=== PATIENT | male | born 2000 | race African-American/Black ===

== ENCOUNTER 2020-05-01 00:02 | Emergency (ER) | payer OTHER ==
[~2020-05-01] VITALS: Ht 165.1 cm; Wt 85.0 kg
--- NOTE | 2020-05-01 01:05 | PHYS DOC ---
General Adult EDM: Chief Complaint: DIZZY/LIGHT HEADED HPI: HPI: " I started feeling bad. 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 No recent travel. No specific ill contacts. Up-to-date with vaccinations. No history immunosuppression. No history of bad food intake. Review of Systems: Review of Systems: Constitutional: Denies fever or chills Eyes: Denies change in visual acuity HENT: Complains of bleeding left nasal, nasal congestion . Respiratory: Denies cough or shortness of breath Cardiovascular: Denies chest pain or edema GI: History of generalized abdominal pain, nausea, vomiting,. Denies bloody stools. Complains of diarrhea : Denies dysuria Musculoskeletal: Complaints of generalized myalgia and arthralgia Integument: Denies rash Neurologic: Denies headache, focal weakness or sensory changes Endocrine: Denies polyuria or polydipsia Lymphatic: Denies swollen glands Psychiatric: Denies depression or anxiety Family History: Family History: Noncontributory to presentation Current Medications: Current Meds: See nursing for home meds Allergies: Allergies: No known drug allergies Physical Exam: PE: Constitutional: Well developed, well nourished, no acute distress, non-toxic appearance. [] HENT: Normocephalic, atraumatic, bilateral external ears normal, oropharynx moist, no oral exudates, nose no septal hematoma. Has some dried blood in the area of [place]. Eyes: PERRLA, EOMI, conjunctiva normal, no discharge. [] Neck: Normal range of motion, no tenderness, supple, no stridor. [] Cardiovascular: Bradycardia heart rate regular rhythm, no murmur [] Lungs & Thorax: Bilateral breath sounds "apex auscultation [] Abdomen: Bowel sounds hyperactive,, soft, no tenderness, no masses, no pulsatile masses. [] Skin: Warm, dry, no erythema, no rash. [] Back: No tenderness, no CVA tenderness. [] Extremities: No tenderness, no cyanosis, no clubbing, ROM intact, no edema. [] Neurologic: Alert and oriented X 3, normal motor function, normal sensory function, no focal deficits noted. [] Psychologic: Affect anxious, judgement normal, mood normal. [] EKG: EKG: My interpretation EKG shows a sinus bradycardia at 60 bpm no acute morphology [] Radiology/Procedures: Radiology/Procedures: [][address] [address] IMAGING REPORT Signed PATIENT: FORTINO ASHBY ACCOUNT: [id number] : 2000 LOCATION: ER AGE: 19 SEX: M EXAM STATUS: REG ER ORD. PHYSICIAN: WHITNEY MEDINA MD REASON: nausea vomiting pain PROCEDURE: ACUTE ABDOMEN SERIES EXAM: XR ABDOMEN COMP ACUTE 05/01/2020 1:47 AM CLINICAL INDICATION: Nausea, vomiting, pain COMPARISON: None TECHNIQUE: AP and supine views of the abdomen and PA view of the chest FINDINGS: Bowel gas pattern is nonspecific and nonobstructive. Normal volume of stool. No abnormal calcifications. The heart and mediastinum are normal. Lungs are well-expanded and clear. No pleural effusion or pneumothorax. No acute osseous abnormality. IMPRESSION: Normal abdominal series radiograph. Electronically signed by: Stacey Louis MD (05/01/2020 2:57 AM) [id number] DICTATED AND SIGNED BY: STACEY LOUIS MD DATE: 05/01/20 0255 CC: WHITNEY MEDINA MD; PCP,UNKNOWN ~MTH0 0 Heart Score: HEART Score for Chest Pain: HEART Score for Chest Pain Response (Comments) Value History Slighlty/Non-Suspicious 0 ECG Normal 0 Age < 45 0 Risk Factors No Risk Factors 0 Troponin < Normal Limit 0 Total 0 Risk Factors: Risk Factors: DM, Current or recent (<one month) smoker, HTN, HLP, family history of CAD, obesity. Risk Scores: Score 0 - 3: 2.5% MACE over next 6 weeks - Discharge Home Score 4 - 6: 20.3% MACE over next 6 weeks - Admit for Clinical Observation Score 7 - 10: 72.7% MACE over next 6 weeks - Early Invasive Strategies Course & Med Decision Making: Course & Med Decision Making Pertinent Labs and Imaging studies reviewed. (See chart for details) Patient to take Tylenol and ibuprofen for pain or fever. For active nausea vomiting take Zofran 8 mg up to 4 times a day. Follow-up primary care. Clear fluid diet. Follow-up Covid testing. Self isolate wear a mask that covers nose and mouth at all times when away from home. Return if any concerns. Impression: `1. Viral Syndrome [] Dragon Disclaimer: Dragon Disclaimer: This electronic medical record was generated, in whole or in part, using a voice recognition dictation system. Departure Departure: Referrals: PCP,UNKNOWN (PCP) Scripts Ondansetron Hcl (ZOFRAN) 4 Mg Tablet 2 TAB PO Q6HRS for nausea and vomiting, #30 TAB Prov: WHITNEY MEDINA MD 05/01/20 Dragon Disclaimer This chart was dictated in whole or in part using Voice Recognition software in a busy, high-work load, and often noisy Emergency Department environment. It may contain unintended and wholly unrecognized errors or omissions. Dragon Disclaimer This chart was dictated in whole or in part using Voice Recognition software in a busy, high-work load, and often noisy Emergency Department environment. It may contain unintended and wholly unrecognized errors or omissions. WHITNEY MEDINA MD May 01, 2020 01:05
[2020-05-01] MEDS ORDERED: oxyCODONE/APAP 5/325 1 TAB TABLET PO ONE (01:45)
[2020-05-01] MEDS ORDERED: IV RINGERS SOLUTION,LACTATED 1,000 ML IV SCH (01:45)
[2020-05-01] MEDS ORDERED: ONDANSETRON PF 4 MG/2 ML VIAL. IVP ONE (01:45)
--- NOTE | 2020-05-01 01:46 | EKG ---
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
[2020-05-01 02:58] LABS: CALCIUM 8.7 mg/dL (8.5-10.1); CREATININE 0.8 mg/dL (0.7-1.3); GFR 150.7; POTASSIUM 3.6 mmol/L (3.5-5.1)
--- NOTE | 2020-05-01 02:59 | RAD ---
EXAM: XR ABDOMEN COMP ACUTE 05/01/2020 1:47 AM CLINICAL INDICATION: Nausea, vomiting, pain COMPARISON: None TECHNIQUE: AP and supine views of the abdomen and PA view of the chest FINDINGS: Bowel gas pattern is nonspecific and nonobstructive. Normal volume of stool. No abnormal c alcifications. The heart and mediastinum are normal. Lungs are well-expanded and clear. No pleural ef fusion or pneumothorax. No acute osseous abnormality. IMPRESSION: Normal abdominal series radiograph. Electronically signed by: Stacey Louis MD (05/01/2020 2:57 AM) [id number]
[2020-05-01 03:00] VITALS: BP 136/85
[2020-05-01 03:03] LABS: INFLUENZA A PATIENT NEGATIVE (NEGATIVE); INFLUENZA B PATIENT NEGATIVE (NEGATIVE)
[2020-05-01 03:03] LABS: ALBUMIN 3.8 g/dL (3.4-5.0); DIRECT BILIRUBIN 0.1 mg/dL (0.0-0.2); MAGNESIUM 1.9 mg/dL (1.8-2.4); TOTAL BILIRUBIN 0.2 mg/dL (0.2-1.0); TOTAL PROTEIN 7.2 g/dL (6.4-8.2)
[2020-05-01 03:23] LABS: BASO % 1 % (0-3); EOS # 0.2 x10^3/uL (0.0-0.7); EOS % 2 % (0-3); HEMATOCRIT 42.4 % (39.0-53.0); HEMOGLOBIN 14.1 g/dL (13.0-17.5); LYMPH # 2.4 x10^3/uL (1.0-4.8); LYMPH % 26 % (24-48); MEAN CORPUSCULAR HEMOGLOBIN 29 pg (25-35); MEAN CORPUSCULAR HGB CONC 33 g/dL (31-37); MEAN CORPUSCULAR VOLUME 87 fL (79-100); MONO # 0.6 x10^3/uL (0.0-1.1); MONO % 6 % (0-9); NEUT # 5.9 x10^3uL (1.8-7.7); NEUT % 65 % (31-73); PLATELET COUNT 256 x10^3/uL (140-400); RED BLOOD COUNT 4.86 x10^6/uL (4.30-5.70); RED CELL DISTRIBUTION WIDTH 12.8 % (11.5-14.5); WHITE BLOOD COUNT 9.1 x10^3/uL (4.0-11.0)
[2020-05-01] MEDS ORDERED: ONDA4TAB7 PO (03:54)
--- NOTE | 2020-05-03 09:41 | NUR ---
IP: patient notified of COVID result.
== END 2020-05-01 04:25 | disposition home or self-care (01) ==
LOC: ER 00:02
DX: B34.9 Viral infection, unspecified (principal); Z20.822 Contact with and (suspected) exposure to COVID-19; R04.0 Epistaxis
CPT/HCPCS: 36415; 74022; 80048; 80076; 82550; 83690; 83735; 84443; 84484; 85025; 85610; 85730; 86705; 86709; 86803; 87340; 87804; 93005; 96361; 96374; 99285; C9803; J2405; J7120; U0003

== ENCOUNTER 2020-07-07 02:08 | Emergency (ER) | payer OTHER ==
[~2020-07-07] VITALS: Ht 165.1 cm; Wt 90.0 kg
[~2020-07-07 02:08] MED LIST: ONDA4TAB7 PO
--- NOTE | 2020-07-07 02:40 | PHYS DOC ---
Past History Past Medical History: Asthma, Depression Past Surgical History: Other Additional Past Surgical Histo: Left shoulder rotator cuff surgery Alcohol Use: Rarely General Adult EDM: Chief Complaint: ABDOMINAL PAIN HPI: HPI: Patient is a 19-year old male coming in for right-sided abdominal pain that started earlier today. Patient states he had a wisdom tooth extraction 5 days prior. Today went in to have 1 on the right side packed because of a developing dry socket. Patient states afterwards he started having sharp right lower quadrant abdominal pain. Patient states the pain is worse with laying supine or leaning forward. Denies any changes in urination, blood in his urine, testicular pain. Has not had any nausea but has made himself vomit without improvement of the pain. Had a normal bowel movement earlier today as well. Patient has had decreased appetite. Last p.o. intake was fluid about 2 hours prior to arrival. Last solid p.o. intake about 12 hours prior to arrival. Past surgical history wisdom tooth extraction and left AC repair Review of Systems: Review of Systems: All other systems within normal limits except for as noted in the HPI Current Medications: Current Meds: Current Medications Medications (Trade) Dose Ordered Sig/Елена Start Time Stop Time Status Last Admin Dose Admin Fentanyl Citrate (Fentanyl 2ml Vial) 75 mcg 1X ONCE 07/07/20 03:00 07/07/20 03:01 Ondansetron HCl (Zofran) 4 mg 1X ONCE 07/07/20 03:00 07/07/20 03:01 Sodium Chloride 1,000 ml @ 1,000 mls/hr 1X ONCE 07/07/20 03:00 07/07/20 03:59 Allergies: Allergies: Allergies Coded Allergies Type Severity Reaction Last Updated Verified No Known Drug Allergies 05/01/20 No Physical Exam: PE: Constitutional: Well developed, well nourished, no acute distress, non-toxic appearance. [] HENT: Normocephalic, atraumatic, bilateral external ears normal, nose normal. [] Eyes: PERRLA, conjunctiva normal, no discharge. [] Neck: No rigidity, supple, no stridor. [] Cardiovascular: Regular rate and rhythm, brisk cap refill [] Lungs & Thorax: Non labored symmetric respirations, no tachypnea or respiratory distress [] Abdomen: Soft, nondistended, voluntary guarding, pain on right upper and lower abdomen. Positive Rovsing sign, no rebound.. Skin: Warm, dry, no erythema, no rash. [] Back: Unremarkable Extremities: No deformities, range of motion grossly intact, no lower extremity edema [] Neurologic: Alert and oriented X 3, no focal deficits noted. [] Psychologic: Affect normal, judgement normal, mood normal. [] EKG: EKG: [] Radiology/Procedures: Radiology/Procedures: CT ABDOMEN+PELVIS W Clinical Indication: Reason: RLQ pain Comparison: None. Technique: Helical CT imaging of the abdomen and pelvis is performed after 75 cc of Omnipaque 300 IV contrast. Oral contrast not administered. Findings: The lung bases are clear. Cardiac size normal. The liver, gallbladder, spleen, pancreas, adrenal glands, abdominal aorta, and kidneys are normal. The stomach is unremarkable. There is no dilated small bowel. The appendix is normal. There is no colon wall thickening. The sigmoid colon is decompressed. No abdominal adenopathy or free fluid. Urinary bladder is normal. There is trace pelvic free fluid, abnormal. The prostate and seminal vesicles are normal. No acute bone abnormality. IMPRESSION: 1. The appendix is normal. 2. Trace pelvic free fluid, abnormal. [] Heart Score: C/O Chest Pain: No Risk Factors: Risk Factors: DM, Current or recent (<one month) smoker, HTN, HLP, family history of CAD, obesity. Risk Scores: Score 0 - 3: 2.5% MACE over next 6 weeks - Discharge Home Score 4 - 6: 20.3% MACE over next 6 weeks - Admit for Clinical Observation Score 7 - 10: 72.7% MACE over next 6 weeks - Early Invasive Strategies Course & Med Decision Making: Course & Med Decision Making Pertinent Labs and Imaging studies reviewed. (See chart for details) Discussed possible early appendicitis and return precautions. Also discussed that patient has a moderate stool burden in the ascending colon that might be causing some discomfort. Discussed treatment of constipation and discussed using stool softener while taking opioid pain medications for his wisdom teeth extraction. Trace free fluid clinically insignificant, in the setting of no abdominal trauma. [] Dragon Disclaimer: Dragon Disclaimer: This electronic medical record was generated, in whole or in part, using a voice recognition dictation system. Departure Departure: Impression: Primary Impression: Abdominal pain Disposition: 01 DC HOME SELF CARE/HOMELESS Condition: STABLE Referrals: PCP,UNKNOWN (PCP) Patient Instructions: Abdominal Pain, Possible Early Appendicitis Additional Instructions: Alleviate constipation by taking [id number] magnesium citrate. Take a stool softener any time taking opioid pain medications to prevent OLIVEROSHERMAN DICKERSON MD Jul 07, 2020 02:40
[2020-07-07] MEDS ORDERED: CONTRAST GIVEN. MC PRN (02:45)
[2020-07-07 02:55] LABS: BASO # 0.1 x10^3/uL (0.0-0.2); BASO % 1 % (0-3); EOS # 0.3 x10^3/uL (0.0-0.7); EOS % 3 % (0-3); HEMATOCRIT 49.1 % (39.0-53.0); HEMOGLOBIN 16.6 g/dL (13.0-17.5); LYMPH % 24 % (24-48); MEAN CORPUSCULAR HEMOGLOBIN 29 pg (25-35); MEAN CORPUSCULAR HGB CONC 34 g/dL (31-37); MEAN CORPUSCULAR VOLUME 87 fL (79-100); MONO # 0.6 x10^3/uL (0.0-1.1); MONO % 7 % (0-9); NEUT # 5.5 x10^3uL (1.8-7.7); NEUT % 66 % (31-73); PLATELET COUNT 336 x10^3/uL (140-400); RED BLOOD COUNT 5.66 x10^6/uL (4.30-5.70); WHITE BLOOD COUNT 8.4 x10^3/uL (4.0-11.0)
[2020-07-07] MEDS ORDERED: IOHEXOL 300 MG/ML 75 ML VIAL. IV ONE (03:00)
[2020-07-07] MEDS ORDERED: ONDANSETRON PF 4 MG/2 ML VIAL. IVP ONE (03:00)
[2020-07-07] MEDS ORDERED: IV NORMAL SALINE 1,000ML 1,000 ML IV ONE (03:00)
[2020-07-07 03:03] LABS: CALCIUM 9.5 mg/dL (8.5-10.1); CREATININE 0.9 mg/dL (0.7-1.3); GFR 131.5; POTASSIUM 4.3 mmol/L (3.5-5.1)
[2020-07-07 03:08] LABS: ALBUMIN 4.4 g/dL (3.4-5.0); ALBUMIN/GLOBULIN RATIO 1.1 (1.0-1.7); TOTAL BILIRUBIN 0.4 mg/dL (0.2-1.0); TOTAL PROTEIN 8.5 g/dL (6.4-8.2)
--- NOTE | 2020-07-07 03:52 | RAD ---
PQRS Compliance Statement: One or more of the following individualized dose reduction techniques were utilized for this examinat ion: 1. Automated exposure control 2. Adjustment of the mA and/or kV according to patient size 3. Use of iterative reconstruction technique CT ABDOMEN+PELVIS W Clinical Indication: Reason: RLQ pain Comparison: None. Technique: Helical CT imaging of the abdomen and pelvis is performed after 75 cc of Omnipaque 300 IV contrast. Oral contrast not administered. Findings: The lung bases are clear. Cardiac size normal. The liver, gallbladder, spleen, pancreas, adrenal glands, abdominal aorta, and kidneys are normal. The stomach is unremarkable. There is no dilated small bowel. The appendix is normal. There is no col on wall thickening. The sigmoid colon is decompressed. No abdominal adenopathy or free fluid. Urinary bladder is normal. There is trace pelvic free fluid, abnormal. The prostate and seminal vesic les are normal. No acute bone abnormality. IMPRESSION: 1. The appendix is normal. 2. Trace pelvic free fluid, abnormal. Electronically signed by: King Yepez MD (07/07/2020 3:50 AM) [facility]
[2020-07-07 04:38] VITALS: BP 139/86
== END 2020-07-07 04:38 | disposition home or self-care (01) ==
LOC: ER 02:08
DX: R10.31 Right lower quadrant pain (principal); R10.11 Right upper quadrant pain; J45.909 Unspecified asthma, uncomplicated; F32.9 Major depressive disorder, single episode, unspecified
CPT/HCPCS: 36415; 74177; 80053; 83690; 85025; 96361; 96374; 96375; 99285; J2405; J3010; J7030; Q9967